=== PATIENT | female | born 1975 | race Caucasian/White ===

== ENCOUNTER 2024-05-07 09:57 | Day surgery (SDC) | payer OTHER, SELFPAY ==
[2024-05-02 07:57] VITALS: BMI 43.0
[2024-05-07] VITALS (8 sets, daily range): BP systolic 123–155; BP diastolic 80–94; PULSE 67–91; RESP 10–19; TEMP 36.2–36.5; O2SAT 94–100; BMI 42.0
[2024-05-07] MEDS: LACTATED RINGERS 1,000 ML 42 ML IV (10:23)
[2024-05-07] MEDS: ACETAMINOPHEN 325 MG TABLET 975 MG PO (10:34)
--- NOTE | 2024-05-07 12:01 | PM.HP.1 ---
History of Present Illness History of Present Illness Date Patient Seen: 05/07/24 Time Patient Seen: 12:07 Date of Onset of Symptoms: 05/07/24 Chief complaint: Right Achilles Narrative: The patient is a 48-year-old female that sustained a right Achilles tendon rupture on February 15 or after tripping over an uneven sidewalk while walking in [place]. She thought she just sprained it and tried to hobble around for week or so before she sought care with a primary doctor and/or MRI was ordered. This revealed a very distal or insertional rupture of her Achilles tendon she did not present until for 6 weeks after the injury. She has no known prior Achilles tendon problems or tendinitis. She has not taken any recent antibiotic courses. She does have a history of chronic foot pain around the heel which she attributed to being overweight. No prior surgeries on the ankle or heel. Hives with penicillin or sulfa drugs. Nonsmoker. Obesity BMI 43 He had some personal matters to take care of and has completed those now and is now presenting for surgical repair of her insertional Achilles tendon rupture, chronic--3-month-old [facility] Medical History (Updated 05/07/24 @ 12:12 by Shabana oMnahan MD) Metabolic syndrome Insomnia Hepatitis B Anxiety and depression HTN (hypertension) BMI 40.0-44.9, adult Achilles tendon rupture (02/2024) Surgical History (Updated 05/02/24 @ 07:47 by Bree Starks RN) Hx of tonsillectomy Social History household members: spouse Smoking Status: Never smoker alcohol intake: current Meds Home Medications and Allergies Home Medications Medication Instructions Recorded Confirmed Type fexofenadine 60 mg tablet (Renae 60 mg PO BID 05/02/24 05/07/24 History Allergy) melatonin 5 mg chewable tablet 5 mg PO BEDTIME PRN Sleep 05/07/24 05/07/24 History Allergies Allergy/AdvReac Type Severity Reaction Status Date / Time Penicillins Allergy Hives Verified 05/07/24 10:19 Sulfa (Sulfonamide Allergy Hives Verified 05/07/24 10:19 Antibiotics) Review of Systems Review of Systems ROS: Yes All systems reviewed with the patient and are negative except as otherwise documented Exam Vital Signs (past 8 hours): - 05/07/24 10:41 Temperature 97.2 F L Pulse Rate 81 Respiratory Rate 19 Blood Pressure 136/82 Pulse Oximetry 96 Oxygen Delivery Method Room Air Oxygen Delivery Method Room Air Narrative Exam Narrative: Alert and oriented no acute distress Heart regular rate and rhythm Lungs clear to auscultation Obesity BMI 43 Right lower extremity grossly normal alignment increased resting dorsiflexion. Palpable gap of the Achilles tendon just above the insertion at the heel. It is compressible. Soni with no plantar flexion. Sensation grossly intact. Brisk capillary refill. Palpable dorsalis pedis pulse. Skin intact. Assessment & Plan Assessment and plan (1) Morbid obesity: Status: Acute (2) Achilles tendon rupture: Problem details: Right. Qualifiers: Encounter type: subsequent encounter Laterality: right Qualified Code(s): S86.011D - Strain of right Achilles tendon, subsequent encounter Status: Acute Assessment & Plan narrative: Patient was a chronic Achilles tendon rupture this is a very distal rupture near the insertion and she has a history of heel pain and tendinosis on MRI. She is indicated for surgical repair including possible flexor hallucis longus transfer of the tendon quality is poor. We discussed possible gastroc recession in order to gain length for tendon reattachment. She does not smoke. She does not have diabetes. She does have an elevated BMI. Personal or family history of blood clots. Plan for operative repair. We will do aspirin 325 mg b.i.d. x6 weeks for DVT prophylaxis postop Postoperative course will be 2 weeks of nonweightbearing for incisional hearing then progressive weight-bearing in a boot with heel lifts once incision is appropriately healed. The risks and benefits of the procedure have been discussed with the patient and given the opportunity to ask questions. The risks of surgery include but are not limited to infection, malunion, nonunion, persistence of pain, damage to nerves and blood vessels, posttraumatic arthritis, DVT, PE, coardiopulmonary complications and . The patient expressed a thorough understanding of the risks and benefits of surgery and has elected to proceed. Consent was signed. Time-Based Coding :: [TOTAL MINUTES] spent with patient and on the chart (including review of chart, obtaining history, exam, reviewing outside data, placing orders, documenting exam and treatment plan, and counseling patient) on [DATE].
[2024-05-07] MEDS: CEFAZOLIN 2 GM/100 ML PREMIX 100 ML IV (12:23)
[2024-05-07] MEDS: CEFAZOLIN VIAL 1 GM in SODIUM CHLORIDE 0.9% 100 ML IV (12:23)
--- NOTE | 2024-05-07 13:06 | SUR.OPER ---
Prone on padded OR bed, head in foam head support, gel chest rolls, gel pad under knees, blankets under lower legs, toes free of pressure, arms secured on padded arm boards at <90 degrees abduction. Safety belt at thigh. nonsurgical leg secured with tape.
[2024-05-07] MEDS: BUPIVACAINE 0.25% (PF) 30 ML, EPINEPHrine 0.15 MG INJ (13:22)
--- NOTE | 2024-05-07 14:52 | PM.OP.1 ---
Operative Date/Time/Diagnoses Date of procedure: 05/07/24 Time of procedure: 14:53 Pre-op diagnosis: Rupture right Achilles tendon, chronic, morbid obesity BMI 43 Post-op diagnosis: same Procedure & Clinicians Procedure: Repair of right Achilles tendon secondary CPT code 74640, right Flexor hallucis longus tendon transfer CPT code 07227 right This procedure is indicated for use of the modifier 22 For increased complexity of procedure and chronic Achilles tendon rupture greater than 3-month-old and patient with morbid obesity BMI 43 with surgery complicated by extensive scarring from age of rupture and adhesions throughout the operative field and morbid obesity requiring increased service intensity and procedural time compared to a standard Achilles tendon repair Same procedure as scheduled: Yes Indications: The patient is a 48-year-old female that sustained a right Achilles tendon rupture in early February tripping on an uneven sidewalk in [place]. She thought she just sprained it and then went to her primary care doctor where an MRI was ordered. She presents for fixation of her rupture now 3 months out from her injury. She endorses chronic foot pain around the heel she did not have any fluoroquinolone exposure. She had a very distal insertional type rupture with tendinosis. She was indicated for Achilles tendon repair of her insertional rupture with consideration of flexor hallucis longus transfer and gastroc recession due to the retraction of the tendon. She has no personal or family history of blood clots The risks and benefits of the procedure have been discussed with the patient and given the opportunity to ask questions. The risks of surgery include but are not limited to infection, malunion, nonunion, persistence of pain, damage to nerves and blood vessels, posttraumatic arthritis, DVT, PE, cardiopulmonary complications and . The patient expressed a thorough understanding of the risks and benefits of surgery and has elected to proceed. Consent was signed in the Surgeon: Shabana Monahan Click Yes if Unassisted: Yes Anesthesia Type: Peripheral nerve block and Local Operative Notes Findings: Very distal Achilles rupture with the level of the insertion. Small stump medially distal no stump left lateral substantial tendinosis at the distal stump which was debrided. Extensive adhesions within the surgical bed for released to allow mobilization. Deep fasciotomy was performed and FHL tendon exposed and harvested. After freeing the Achilles tendon distally this was still proximally 3 cm from area of insertion decision was made for gastroc recession. After gastroc recession Achilles could be approximated to the desired footprint Closure Type: primary Prosthetic devices, grafts, tissues, transplants, or devices: Arthrex suture anchor BioComposite corkscrew 5.5 x 14.7 for FHL transfer Arthrex suture anchor knotless SwiveLock 4.75 BioComposite x2 for Achilles repair Estimated Blood Loss (mL): 25 Blood products transfused: none Tourniquet time (min): 22 Procedure in detail: Patient was seen in the preoperative area the site of surgery was marked informed consent confirmed this was the right ankle. A regional block was placed by the anesthesia team for postoperative pain control the patient was brought to operating room and general anesthetic was administered. The patient was then positioned prone on the operative table and bony prominences were well padded. A well-padded thigh tourniquet was applied on the right lower extremity. And an SCD on the contralateral lower extremity. The right lower extremity was prepped and draped in standard sterile fashion a formal time-out procedure was performed confirming the patient's side and site of surgery and administration of appropriate preoperative antibiotics which were weight based dosing of Ancef. All were in agreement attention was turned to the right lower extremity with the Esmarch was used for exsanguination the tourniquet raised on the thigh. Midline incision was made from the Achilles insertion proximally 7 m proximal and a separate incision was marked out between 14 and 16 cm above the top of the heel for the planned gastroc recession. Tourniquet was elevated for 22 minutes and was found to be venous and was let down and not reelevated Secondary Achilles tendon repair: Attention was 1st turned distally in the midline incision was opened with careful dissection down to the level of the paratenon and then to the tendon. The paratenon was opened and reflected. There was extensive scarring and adhesions at the level of the rupture just above the level of the top of the heel. As the paratenon was opened the Achilles tendon rupture was noted there was also avulsion of the insertion laterally there was a small stump left medially with severe tendinosis. The Achilles tendon proximal stump was isolated and debrided to healthy tendon. This was then freed up using a blade and a malleable retractor and excursion was tested. This is still about 3 cm from the heel so a gastroc recession was determined necessary. Additionally with the quality of the tendon and tendinosis decision was made for FHL transfer to provide a more robust repair. Two 2. Fiber tapes were run through the proximal stump of the Achilles tendon in a Krackow suture fashion. CPS saw was used to remove the Juan M deformity and expose fresh bone for C anchoring procedure. After the FHL transfer was completed as detailed below a drill holes for the 4.5 swivel locks were completed and then tapped. The proximal Achilles stump suture tapes were then brought through the swivel locks and secured to the calcaneus bone with excellent bite. The loose free suture from the suture anchor core screw from the FHL transfer was then run through the Achilles and secured as a backup stitch and additional free FiberWire suture was run through the remnant medial stump to the repair site and oversewn. At the end of The repair was tested and Soni's plantar flexion was restored. The ankle was placed through range of motion to neutral without gapping. Once this was completed the wounds were thoroughly irrigated the deep tissue and paratenon was closed with 3-0 PDS suture. The subcutaneous tissue with 4-0 Monocryl and the skin with 3-0 nylon in a horizontal and vertical mattress style suture. Dermabond was placed over the skin as well. FHL transfer: FHL tendon was isolated deep medial to the Achilles tendon and traced into the tarsal tunnel. The Ragnell was used to pull traction on this while it was cut as long as possible. Then a FiberLoop was used to prepare the tendon and this was sized to fit through a 6 mm Sizer. A guidewire was drilled just anterior to the planned Achilles repair footprint and brought out the heel and this was overdrilled with a 6 mm Reamer. Then a passing suture Lasso was used to bring the sutures from the FHL tendon through the tunnel. The FHL tendon was pulled into the drill tunnel and secured with the 5.5 bio composite corkscrew. This was tested and was secured through a range of motion. Next attention was returned to completing the Achilles tendon repair indicated above. Gastroc recession. After the Achilles was initially exposed and was found to have a maintained 3 cm gap from the desired footprint location decision was made for a gastroc recession. Separate incision was made between 14 16 cm above the Achilles insertion on the heel this was taken down through the skin subcutaneous tissues. Care was taken to protect the neurovascular bundle and the paratenon was isolated and opened and retracted then a division of the gastroc fascia was completed exposing the underlying muscle and lengthening gaining approximately 2.5 cm of length. This did allow the Achilles to be brought distally to the planned footprint. This was then irrigated and closed with 4-0 Monocryl and Dermabond. At the end of the procedure all counts were correct. The patient was placed in a sterile posterior and U splint in plantar flexion. Toes had brisk capillary refill. The patient was taken to the recovery room in good condition there were no immediate complications from the procedure. Complications: none Post-operative Condition: stable Disposition: PACU Plan for aftercare: Nonweightbearing times 2-3 weeks until incisions well healed then we will start progressive weight-bearing in the boot with the heel lifts. Until then we will use the walker crutches or a knee scooter. We will take aspirin 325 mg enteric-coated b.i.d. for DVT prophylaxis x6 weeks.
--- NOTE | 2024-05-07 15:24 | SUR.PHASEII ---
1519 - bedpan 1529 - off bedpan - urinated - not measured
[2024-05-07] MEDS: ONDANSETRON 4 MG/2 ML INJ IV (15:46)
--- NOTE | 2024-05-07 16:16 | SUR.PHASEII ---
Pt is working with PT and has had crackers and starry drink. States she feels better. Assumed care at 1605 from Giovanni Mcqueen RN. Pt denies pain. Currently pt is in wheelchair and going with Physical Therapy to practice walking up stairs.
--- NOTE | 2024-05-07 16:56 | SUR.PHASEII ---
1656 - PT present - pt insturction on crutches and two-wheel walker
--- NOTE | 2024-05-08 16:06 | PT.IIE ---
Current Diagnoses Morbid (severe) obesity due to excess calories (05/07/24) Strain of right Achilles tendon, initial encounter (05/07/24) Strain of right Achilles tendon, subsequent encounter (05/07/24) Surgery Performed Operation Date: 05/07/24 11:45 Actual Procedures p Achilles Tendon Repair with gastric recession an dFHl (flexoe hallus longus) transfer. - Shabana Monahan MD Surgical History (Last Updated 05/02/24 @ 07:47 by Bree Starks RN) Hx of tonsillectomy Medical History (Last Updated 05/07/24 @ 12:11 by Shabana Monahan MD) Achilles tendon rupture (02/2024) Anxiety and depression BMI 40.0-44.9, adult Hepatitis B HTN (hypertension) Insomnia Metabolic syndrome Physical Therapy Inpatient Evaluation/Re-Eval M1 PT/OT-IP Prior Functional Status Start: 05/08/24 15:52 Freq: NEEDED Status: Active Protocol: Document 05/08/24 15:53 KJ (Rec: 05/08/24 16:06 KJ [id number]) Medical Review Prior Functional Status Medical History Reviewed Yes Mobility and Gait Ambulating indep w/out AD, wearing boot Activities of Daily Living and IADL's Indep Social History Household Members spouse Living Arrangements House Number of Floors (Floors) Two Floors Number of Stairs To Enter/Railing? 3 18 steps in the house, which is a split level. Main living space is on the upper floor. Home Environment Standard Height Toilet,Walk in Shower,Tub/Shower Employment Status General [employer] Employed M2 PT-IP Current Condition Start: 05/08/24 15:52 Freq: NEEDED Status: Active Protocol: Document 05/08/24 15:53 KJ (Rec: 05/08/24 16:06 KJ [id number]) Physical Therapy Current Condition Current Condition Evaluation Date 05/07/24 Treatment Diagnosis Impaired mobility Onset Date February 2024 M3 PT-IP Subjective Start: 05/08/24 15:52 Freq: NEEDED Status: Active Protocol: Document 05/08/24 15:53 KJ (Rec: 05/08/24 16:06 KJ [id number]) Subjective Physical Therapy Visit Type Type Initial Evaluation Visit Start Time 15:27 Visit Stop Time 16:54 Notes Pt required extended time with frequent rests due to nausea and aftereffects of anesthesia . Physical Therapy Visit Comments Patient Goals to heal Therapy Pain Assessment Pain When Pain Assessed During Mobility Pain Present Pain Present Pain Reported Location RLE Description Throbbing Pain Behaviors Facial Grimacing,Guarding Pain Management Techniques Re-positioning M4 PT-IP Mobility and Gait Start: 05/08/24 15:52 Freq: NEEDED Status: Active Protocol: Document 05/08/24 15:53 KJ (Rec: 05/08/24 16:06 KJ [id number]) PT-Bed Mobility Assessment Rolling Type of Rolling Log Rolling,Roll to Left Level of Assist Minimal Assistance Supine to Sit Supine to Sit Minimal Assistance PT-Transfer Assessment Sit to and From Stand Sit to and from Stand Minimal Assistance Equipment Transfer Assistive Device Gait Belt,4 Wheeled Walker Orthotic/Prosthetic Devices or Brace: Yes Transfers Transfer Destination Chair Transfer Technique Stand Pivot Transfer Ability Level of Assist Minimal Assistance Gait Assessment Gait Gait Assistance Required: Contact Guard Assist Distance (Feet) 10 Able to Maintain Weight Bearing Status Yes During Gait Assistive Devices Assistive Device Gait Belt,4 Wheeled Walker Orthotic/Prosthetic Devices or Brace: Yes Gait Deviations General Gait Pattern Decreased Stride Length Factors Limiting Gait Function Factors Limiting Gait Function Decreased Activity Tolerance, Decreased Strength,Pain Comments Gait Comments Pt with difficulty maintaining NWB status. Educated pt on importance of following physician direction. Stair Climbing Assessment Comments Stair Climbing Comments Patient was taken from the PACU to the therapy stairs. Pt was unable to attempt stairs. She was unable to take even small hops with the walker while maintaining weightbearing status. Discussed with the patient and her the options of sitting and scooting up and down stairs, as the safest and easiest method with the ability to maintaining non- weightbearing status. PT-Balance Assessment Sitting Balance and Reactions Static Sitting Balance Ability Normal Dynamic Sitting Balance Ability Good Standing Balance and Reactions Static Standing Balance Ability Fair Dynamic Standing Balance Ability Fair Device Used 4ww M5 PT-IP Objective Assessments Start: 05/08/24 15:52 Freq: NEEDED Status: Active Protocol: Document 05/08/24 15:53 KJ (Rec: 05/08/24 16:06 KJ [id number]) Gross Range of Motion Lower Extremity ROM Assessment Right Impaired Impairments ankle and foot Strength Upper Extremity Strength Assessment Within Functional Limits Lower Extremity Strength Assessment Right Impaired M6 PT-IP Treatment Start: 05/08/24 15:52 Freq: NEEDED Status: Active Protocol: Document 05/08/24 15:53 KJ (Rec: 05/08/24 16:06 KJ [id number]) Physical Therapy Treatment Exercises Exercises Ankle Pumps,Gluteal Sets,Quad Sets Knee ROM Measurement toe curls on R, ankle pumps on left. Other Treatments Other Treatment Performed Pt experiencing multiple episodes of nausea during session, requiring frequent rest breaks. M7 PT-IP Assessment and Plan Start: 05/08/24 15:52 Freq: NEEDED Status: Active Protocol: Document 05/08/24 15:53 KJ (Rec: 05/08/24 16:06 KJ [id number]) PT Summary Assessment and Plan Potential Rehabilitation Potential Good Status of Condition at Evaluation Evolving Summary Impairments Pain,ROM,Strength,Gait, Activity Tolerance Goals Other Goals No goals set - will set goals at next session if pt remains in the hospital.. Precautions Brace Keep splint/cast dry and off the ground. Other Precautions Be sure to wiggle toes on R foot and move ankle and toes on L Weight Bearing Status Weight Bearing Status Non-Weight Bearing Recommendations To Nursing Amount of Assist Needed 1 Person Assist Discharge Recommendations PT Discharge Recommendations Home with 26/02 Assist Available Other Discharge Recommendations Pt is not able to ascend/ descend stairs at this time. Equipment Needed for Home Before 4ww Discharge Transportation Needs at Discharge Private Vehicle
== END 2024-05-07 17:04 | disposition home or self-care (01) ==
PROVIDERS: PCP Nurse Practitioner Family; Referring Provider Orthopaedic Surgery Foot and Ankle Surgery; Visit Provider Orthopaedic Surgery Foot and Ankle Surgery
PROC: (CPT 27650; principal; 2024-05-07 11:45)
DX: S86.011A Strain of right Achilles tendon, initial encounter (principal); E66.01 Morbid (severe) obesity due to excess calories; Z68.41 Body mass index [BMI] 40.0-44.9, adult
CPT/HCPCS: 27654; 27691; 27687; 97110; 97116; 97162; C1713; J0171; J0330; J0690; J1100; J1170; J2405; J2704